=== PATIENT | female | born 1950 | race American Indian/Alaskan Native ===

== ENCOUNTER 2020-04-07 20:16 | Inpatient (IN) | payer MEDICARE ==
[~2020-04-07] VITALS: Ht 170.2 cm; Wt 94.7 kg
[2020-04-07 20:53] LABS: BASO % 0.4 % (0.0-2.0); EOS # 0.1 (0.0-0.7); EOS % 0.7 % (0-4.0); GRAN # 5.1 (1.4-6.5); GRAN % 69.1 % (42.2-75.2); HEMATOCRIT 41.9 % (37.0-47.0); HEMOGLOBIN 13.8 g/dl (12.5-16.0); LYMPH # 1.6 (1.2-3.4); LYMPH % 21.2 % (20.0-51.0); MEAN CELL VOLUME 86 fl (80.0-100.0); MEAN CORPUSCULAR HEMOGLOBIN 29 pg (27.0-31.0); MEAN CORPUSCULAR HGB CONC 33 g/dl (33.0-37.0); MONO # 0.6 (0.1-0.6); MONO % 8.5 % (1.7-9.3); PLATELET COUNT 368 K/mm3 (130-400); RED BLOOD COUNT 4.85 M/mm3 (4.10-5.30)
[2020-04-07] MEDS ORDERED: REPATHA SU140 MG/1 M SQ (21:20)
[2020-04-07] MEDS ORDERED: ASPIRIN 81M81 MG/TA2 PO (21:20)
[2020-04-07 21:21] LABS: ALANINE AMINOTRANSFERASE 23 U/L (4-34); ALBUMIN 4.7 gm/dL (3.5-5.0); ALKALINE PHOSPHATASE 84 U/L (50-136); ANION GAP 10 mmol/L (7-16); AST,SGOT 28 U/L (15-37); BILIRUBIN,TOTAL 0.6 mg/dL (0.0-1.0); BLOOD UREA NITROGEN 11 mg/dL (7-17); CALCIUM 10.2 mg/dL (8.4-10.2); CARBON DIOXIDE 28 mmol/L (22-30); CHLORIDE 99 mmol/L (98-107); CREATINE KINASE 106 U/L (30-135); CREATININE, serum 0.61 (0.52-1.25); GLUCOSE 114 mg/dL (74-106); LIPASE 35 U/L (23-300); POTASSIUM 3.5 mmol/L (3.4-5.0); SODIUM 137 mmol/L (137-145); TOTAL PROTEIN 7.8 gm/dL (6.4-8.2)
[2020-04-07] MEDS ORDERED: MASON NATURAL2000 IU PO (21:21)
[2020-04-07] MEDS ORDERED: VITAMIN B122500 MCG SL (21:21)
[2020-04-07] MEDS ORDERED: HCTZ 25MG TAB25 MG PO (21:22)
[2020-04-07] MEDS ORDERED: NEURONTIN300 MG/CAP PO (21:22)
[2020-04-07] MEDS ORDERED: ZETIA 10MG TAB10 MG PO (21:22)
[2020-04-07] MEDS ORDERED: ULTRAM 50MG TAB50 MG PO (21:23)
[2020-04-07] MEDS ORDERED: NITROSTAT0.4 MG/TAB SL (21:23)
[2020-04-07] MEDS ORDERED: ISORDIL 20MG20 M1 PO (21:24)
[2020-04-07] MEDS ORDERED: WELLBUTRIN XL150 MG PO (21:25)
[2020-04-07 21:26] LABS: INR 1.1 (0.8-3.0); PROTHROMBIN TIME 12.3 SECONDS (9.7-12.8)
[2020-04-07] MEDS ORDERED: COMBIRESP IH (21:26)
[2020-04-07] MEDS ORDERED: DESYREL 50MG50 MG PO (21:26)
[2020-04-07] MEDS ORDERED: ANTIVERT 25MG25 MG PO (21:27)
[2020-04-07] MEDS ORDERED: OPTIVAR 6 ML 6 M6 ML OP (21:28)
[2020-04-07] MEDS ORDERED: ZOFRAN ODT4 MG PO (21:28)
[2020-04-07] MEDS ORDERED: TYLENOL 500MG500 MG PO (21:29)
[2020-04-07 21:43] LABS: TROPONIN-I < 0.012 ng/mL (0.000-0.035)
--- NOTE | 2020-04-07 23:20 | NUR ---
PT ADMITTED TO ROOM 330 FROM ER. REPORT RECEIVED FROM JAREN DIAZ. SHERRY CALIXTO HERE. POSSIBLY MOVING HER TO ICU FOR NITRO DRIP. PT HAVING LT LATERAL CHEST UNDER BREAST. PT VERY NONSPECIFIC WITH HISTORY. NS STARTED TO LT INT NEEDLE TO LT F/A AT 75CC/HR. PT HAS ANXIOUS AFFECT. LAB HERE AT 2358 FOR SECOND TROPONIN. NOTIFIED RT FOR STAT EKG.
[2020-04-07 23:25] VITALS: BP 133/74; PULSE 90; TEMP 97.9
[2020-04-07 23:35] VITALS: BP 139/76; PULSE 86; TEMP 97.8
[2020-04-08] VITALS (759 sets, daily range): BP systolic 108–159; BP diastolic 70–93; PULSE 72–88; TEMP 97.9–98.5; O2SAT 50–100
[2020-04-08] MEDS ORDERED: LEXAPRO 10MG10 MG PO (00:04)
[2020-04-08] MEDS ORDERED: [UNRECOGNIZED DRUG - OTHER] PO (00:16)
[2020-04-08] MEDS ORDERED: ashwagandha PO (00:18)
[2020-04-08] MEDS ORDERED: SPIRULINA PO (00:19)
--- NOTE | 2020-04-08 00:24 | NUR ---
GAVE ONE DOSE OF DILAUDID IV PER ORDER FOR LT CHEST. HAS HX DEGENERATIVE DISC DISEASE. WEAR BRACE TO LT KNEE PRN. USE CANE AT HOME. ALSO HAS SEVERE NEUROPATHY.
--- NOTE | 2020-04-08 00:54 | NUR ---
CALLED ICU TRANSFER REPORT TO GUDELIA DIAZ. KARLY DIAZ WILL STAY WITH HER DURING CT CHEST THEN TRANSFER STRAIGHT TO ICU.
--- NOTE | 2020-04-08 01:39 | NUR ---
Arrived to the unit via wheelchair. Patient alert and oriented. Patient is in not in distress but will occasionally grab at her left side in pain. Reports pain is like being "poked with a stick" under the left breast. States that there is always mild pain but the intensity comes and goes suddenly. Does not appear to be worsened with movement or coughing. Administering nitro IV per orders and morphine PRN. Also provided a warm pack for comfort. Call light left within reach; will continue to monitor.
--- NOTE | 2020-04-08 04:10 | NUR ---
Updated patient's son via telephone. All questions and concerns addressed at this time.
[2020-04-08] MEDS ORDERED: ASTELIN NASAL S34 ML NS (05:14)
[2020-04-08] MEDS ORDERED: FIBER GUMMIES2.5 GM (05:15)
[2020-04-08 05:34] LABS: BASO % 0.4 % (0.0-2.0); EOS # 0.1 (0.0-0.7); EOS % 1.1 % (0-4.0); GRAN # 5.5 (1.4-6.5); GRAN % 67.8 % (42.2-75.2); HEMATOCRIT 38.4 % (37.0-47.0); HEMOGLOBIN 12.6 g/dl (12.5-16.0); LYMPH # 1.7 (1.2-3.4); MEAN CELL VOLUME 89 fl (80.0-100.0); MEAN CORPUSCULAR HEMOGLOBIN 29 pg (27.0-31.0); MEAN CORPUSCULAR HGB CONC 33 g/dl (33.0-37.0); MEAN PLATELET VOLUME 8.9 fl (7.4-10.4); MONO # 0.8 (0.1-0.6); MONO % 9.5 % (1.7-9.3); PLATELET COUNT 330 K/mm3 (130-400); RED BLOOD COUNT 4.33 M/mm3 (4.10-5.30); REDCELL DISTRIBUTION WIDTH-CV 14.4 % (11.5-14.5)
[2020-04-08 05:45] LABS: CALCIUM 9.4 mg/dL (8.4-10.2); CHOLESTEROL RISK RATIO 2.4; CREATININE, serum 0.57 (0.52-1.25); POTASSIUM 3.9 mmol/L (3.4-5.0)
--- NOTE | 2020-04-08 09:29 | NUR ---
PT'S MEDICATION BEING HELD AT THIS TIME DUE TO NPO STATUS. PT STATES SHE "HAS TO DRINK A LOT OF WATER WITH HER PILLS." NOTIFIED DR. CHAIREZ OF PT'S STATEMENT. STATES TO ADMIN ASA, BUT ALL OTHER MEDS CAN BE HELD AT THIS TIME.
--- NOTE | 2020-04-08 09:33 | NUR ---
MARKOS met with the patient to discuss discharge plan. The patient lives in [place] with her son, Asha Mcdonald (ph#[phone]). She reports independence with ADLs and has a cane and walking stick. The patient's PCP is Dr. Maryellen Bailey and she receives her medications from [facility]. She reports no difficulties obtaining her meds. The patient does not have a DPOA-HC and she was not interested in completing one at this time. The patient states that she has been seperated from her for three years now, but that they are not legally . She has three children: Asha Mcdonald, Jarvis Mcdonald, and Rome Mcdonald. SW informed the patient that her legal next of kin is her , since they are not yet. The patient verbalized understanding. SW encouraged the patient to think about and to complete a DPOA-HC. The patient was just interested in obtaining a form at this time. MARKOS provided. The patient plans to return home with her son upon discharge. MARKOS attempted to contact the patient's son, Asha. SW left him a voicemail.
--- NOTE | 2020-04-08 09:54 | NUR ---
Dr. Ruvalcaba at bedside speaking with pt.
--- NOTE | 2020-04-08 12:06 | NUR ---
CONTACTED DR. OCHOA, STATES DR. DONIS WILL BE SEEING PT. NOTIFIED DR. DONIS. STATES HE WILL VISIT PT TODAY.
--- NOTE | 2020-04-08 13:50 | NUR ---
Pt's nitro gtt stopped at this time per Dr. Ellis request. will continue to monitor pt's pain level and VS.
--- NOTE | 2020-04-08 15:54 | NUR ---
Dr. Fatima at bedside speaking with pt.
[2020-04-09] VITALS (196 sets, daily range): BP systolic 101–163; BP diastolic 52–95; PULSE 67–116; TEMP 97.7–98.1; O2SAT 78–100
--- NOTE | 2020-04-09 06:49 | NUR ---
Around 5AM patient started complaining of nerve spasms and back pain so I called Kathrin CALIXTO and she stated I can give the patient her Gabapentin early, as the patient requested. I called Report to Chichi DIAZ in the 3rd floor and transfered wheelchaired the patient upstairs.
--- NOTE | 2020-04-09 07:03 | NUR ---
Patient transferred to room 356 via wheelchair from ICU around 06:40 am. Patient reports her chest pain is feeling better at this time. Call light within reach. Gave report to EMILY Moralez.
--- NOTE | 2020-04-09 07:20 | NUR ---
Assessment complete. Pt sitting up in bed, A&O x 4, reports intermittent sharp pain to side 7 out of 10, recently took medication. Slight edema to bilat lower ext. IVF's infusing per orders through right forearm site without s/s of complications. POC reviewed with pt. No further needs reported. Call light in reach.
--- NOTE | 2020-04-09 08:10 | NUR ---
IVF's stopped and disconnected. Pt to nuc med for testing via WC.
--- NOTE | 2020-04-09 09:09 | NUR ---
Pt back to room from nuc med following first part of testing. IVF's and potassium restarted. No further needs reported. Call light in reach.
[2020-04-09] MEDS ORDERED: CARDIZEM CD 12120 MG PO (14:40)
--- NOTE | 2020-04-09 14:49 | NUR ---
Florist'S Decorator collaborated with EMILY Moralez who advised patient has been independent in her room.
--- NOTE | 2020-04-09 16:26 | NUR ---
Discharge instructions reviewed with pt regarding new medications and follow-up appointments. Pt verbalizes understanding, awaiting son to provide transport home.
--- NOTE | 2020-04-09 16:46 | NUR ---
Pt discharged home, ambulates out of facility accompanied by FUDGER.
--- NOTE | 2020-04-09 19:09 | NUR ---
Patient called in for medication clarification. Patient was discharged today. informed patient on the medication she took today per emar. discussed medication that needs to be taken tonight per discharge instruction/ med reconciliation.
== END 2020-04-09 16:48 | disposition home or self-care (01) | DRG 313 ==
LOC: COL.ER 20:16 → JCC 22:04 → MEDICAL 22:04 → ICU 22:04 → MEDICAL 04-09 07:16
PROVIDERS: Emergency Medicine; Nurse Practitioner Family
DX: R07.9 Chest pain, unspecified (principal); K31.6 Fistula of stomach and duodenum; I10 Essential (primary) hypertension; J44.9 Chronic obstructive pulmonary disease, unspecified; K43.2 Incisional hernia without obstruction or gangrene; I25.10 Atherosclerotic heart disease of native coronary artery without angina pectoris; G62.9 Polyneuropathy, unspecified; I08.1 Rheumatic disorders of both mitral and tricuspid valves; I77.1 Stricture of artery; E87.6 Hypokalemia; F32.9 Major depressive disorder, single episode, unspecified; F41.9 Anxiety disorder, unspecified; E78.5 Hyperlipidemia, unspecified; Z79.82 Long term (current) use of aspirin; Z79.891 Long term (current) use of opiate analgesic; Z88.8 Allergy status to other drugs, medicaments and biological substances; Z98.84 Bariatric surgery status
CPT/HCPCS: OP; 99233-AI; C9113; G0378; J1170; J1650; J2270; J2405; J2785; J3480; J7030; Q9967

== ENCOUNTER 2020-08-08 14:54 | Emergency (ER) | payer MEDICARE ==
[~2020-08-08] VITALS: Ht 167.6 cm; Wt 94.1 kg
[~2020-08-08 14:54] MED LIST: ANTIVERT 25MG25 MG PO; ASPIRIN 81M81 MG/TA2 PO; ASTELIN NASAL S34 ML NS; CARDIZEM CD 12120 MG PO; COMBIRESP IH; DESYREL 50MG50 MG PO; FIBER GUMMIES2.5 GM; HCTZ 25MG TAB25 MG PO; ISORDIL 20MG20 M1 PO; LEXAPRO 10MG10 MG PO; MASON NATURAL2000 IU PO; NEURONTIN300 MG/CAP PO; NITROSTAT0.4 MG/TAB SL; OPTIVAR 6 ML 6 M6 ML OP; REPATHA SU140 MG/1 M SQ; SPIRULINA PO; TYLENOL 500MG500 MG PO; ULTRAM 50MG TAB50 MG PO; VITAMIN B122500 MCG SL; WELLBUTRIN XL150 MG PO; ZETIA 10MG TAB10 MG PO; ZOFRAN ODT4 MG PO; [UNRECOGNIZED DRUG - OTHER] PO; ashwagandha PO
[2020-08-08 15:43] LABS: BASO % 0.5 % (0.0-2.0); EOS % 0.6 % (0-4.0); GRAN # 4.8 (1.4-6.5); GRAN % 76.3 % (42.2-75.2); HEMATOCRIT 40.9 % (37.0-47.0); HEMOGLOBIN 13.6 g/dl (12.5-16.0); LYMPH % 15.7 % (20.0-51.0); MEAN CELL VOLUME 86 fl (80.0-100.0); MEAN CORPUSCULAR HEMOGLOBIN 29 pg (27.0-31.0); MEAN CORPUSCULAR HGB CONC 33 g/dl (33.0-37.0); MEAN PLATELET VOLUME 8.8 fl (7.4-10.4); MONO # 0.4 (0.1-0.6); MONO % 6.6 % (1.7-9.3); PLATELET COUNT 325 K/mm3 (130-400); RED BLOOD COUNT 4.76 M/mm3 (4.10-5.30); REDCELL DISTRIBUTION WIDTH-CV 13.6 % (11.5-14.5)
[2020-08-08 16:09] LABS: ALANINE AMINOTRANSFERASE 17 U/L (4-34); ALBUMIN 4.4 gm/dL (3.5-5.0); ALKALINE PHOSPHATASE 74 U/L (50-136); ANION GAP 6 mmol/L (7-16); AST,SGOT 28 U/L (15-37); BILIRUBIN,TOTAL 0.6 mg/dL (0.0-1.0); BLOOD UREA NITROGEN 10 mg/dL (7-17); CALCIUM 9.7 mg/dL (8.4-10.2); CARBON DIOXIDE 28 mmol/L (22-30); CHLORIDE 105 mmol/L (98-107); CREATININE, serum 0.49 (0.52-1.25); GLUCOSE 106 mg/dL (74-106); LIPASE 23 U/L (23-300); POTASSIUM 3.5 mmol/L (3.4-5.0); SODIUM 138 mmol/L (137-145); TOTAL PROTEIN 7.6 gm/dL (6.4-8.2)
[2020-08-08 16:17] LABS: C-REACTIVE PROTEIN < 0.5 mg/dL (0.0-0.9)
[2020-08-08 17:11] LABS: COLLECTION METHOD CLEAN CATCH
[2020-08-08 17:27] LABS: MUCOUS Present /lpf; PH 6 (5-8); SQUAMOUS EPITHELIAL 0-2 /hpf; URINE APPEARANCE Hazy; URINE BACTERIA None Seen /hpf; URINE BILIRUBIN Negative (NEGATIVE); URINE BLOOD Negative (NEGATIVE); URINE COLOR Yellow; URINE GLUCOSE Negative (NEGATIVE); URINE KETONE 1+ (NEGATIVE); URINE LEUKOCYTE ESTERASE Negative (NEGATIVE); URINE NITRATE Negative (NEGATIVE); URINE PROTEIN(semi-quant) 1+ (NEGATIVE); URINE UROBILINOGEN Negative (NEGATIVE)
[2020-08-08] MEDS ORDERED: PROTONIX 40MG T40 MG PO (17:43)
[2020-08-08] MEDS ORDERED: ZOFRAN ODT4 MG PO (17:43)
[2020-08-08 18:15] VITALS: BP 158/93; PULSE 79; TEMP 98.1
[2020-08-09] MEDS ORDERED: NEURONTIN300 MG/CAP PO (03:42)
[2020-08-09] MEDS ORDERED: INULIN PO (03:45)
[2020-08-09] MEDS ORDERED: IMDUR 30MG30 MG/TAB PO (03:51)
[2020-08-09] MEDS ORDERED: HCTZ12.5TAB PO (03:52)
[2020-08-09] MEDS ORDERED: COZAAR 50MG50 MG/TAB PO (03:53)
== END 2020-08-08 17:54 | disposition home or self-care (01) ==
LOC: COL.ER 14:54
PROVIDERS: Nurse Practitioner Primary Care
DX: R10.13 Epigastric pain (principal); R11.2 Nausea with vomiting, unspecified; I25.10 Atherosclerotic heart disease of native coronary artery without angina pectoris; I10 Essential (primary) hypertension; E78.5 Hyperlipidemia, unspecified; F41.9 Anxiety disorder, unspecified; Z88.8 Allergy status to other drugs, medicaments and biological substances; Z79.82 Long term (current) use of aspirin; Z79.899 Other long term (current) drug therapy
CPT/HCPCS: J2405; J7030

== ENCOUNTER 2020-08-08 21:40 | Observation (INO) | payer MEDICARE ==
[~2020-08-08] VITALS: Ht 167.6 cm; Wt 91.9 kg
[~2020-08-08 21:40] MED LIST changes: +PROTONIX 40MG T40 MG PO
[2020-08-08 23:36] LABS: BASO % 0.5 % (0.0-2.0); EOS % 0.7 % (0-4.0); GRAN % 68.1 % (42.2-75.2); HEMATOCRIT 41.9 % (37.0-47.0); LYMPH # 1.3 (1.2-3.4); LYMPH % 21.6 % (20.0-51.0); MEAN CELL VOLUME 86 fl (80.0-100.0); MEAN CORPUSCULAR HEMOGLOBIN 29 pg (27.0-31.0); MEAN CORPUSCULAR HGB CONC 33 g/dl (33.0-37.0); MONO # 0.5 (0.1-0.6); MONO % 8.9 % (1.7-9.3); PLATELET COUNT 341 K/mm3 (130-400); RED BLOOD COUNT 4.88 M/mm3 (4.10-5.30); REDCELL DISTRIBUTION WIDTH-CV 13.8 % (11.5-14.5)
[2020-08-08 23:47] LABS: ALANINE AMINOTRANSFERASE 18 U/L (4-34); ALBUMIN 4.6 gm/dL (3.5-5.0); ALKALINE PHOSPHATASE 80 U/L (50-136); ANION GAP 9 mmol/L (7-16); AST,SGOT 26 U/L (15-37); BILIRUBIN,TOTAL 0.5 mg/dL (0.0-1.0); BLOOD UREA NITROGEN 8 mg/dL (7-17); CALCIUM 9.6 mg/dL (8.4-10.2); CARBON DIOXIDE 23 mmol/L (22-30); CHLORIDE 107 mmol/L (98-107); CREATININE, serum 0.48 (0.52-1.25); GLUCOSE 94 mg/dL (74-106); LIPASE 27 U/L (23-300); POTASSIUM 3.5 mmol/L (3.4-5.0); SODIUM 139 mmol/L (137-145); TOTAL PROTEIN 8.1 gm/dL (6.4-8.2)
[2020-08-09 00:10] LABS: TROPONIN-I < 0.012 ng/mL (0.000-0.035)
[2020-08-09 03:16] VITALS: BP 154/79; PULSE 81; TEMP 97.6
[2020-08-09 03:19] VITALS: BP 154/79; PULSE 79; TEMP 97.6
[2020-08-09] MEDS ORDERED: NEURONTIN300 MG/CAP PO (03:42)
[2020-08-09] MEDS ORDERED: INULIN PO (03:45)
[2020-08-09] MEDS ORDERED: IMDUR 30MG30 MG/TAB PO (03:51)
[2020-08-09] MEDS ORDERED: HCTZ12.5TAB PO (03:52)
[2020-08-09] MEDS ORDERED: COZAAR 50MG50 MG/TAB PO (03:53)
--- NOTE | 2020-08-09 04:30 | NUR ---
Patient is feeling a little better after getting reglan IV. She continues to have nausea but no vomiting. Toradol given for pain. Went through her allergies and home medications with her. Admission assessments compledted. Oriented patient to room. Discussed the plan for today. She is NPO. She refused getting the NG tube placed. SHe is able to get up and walk on her own without assist. Her family are aware of her admission. No other changes at this time. Call light within reach.
[2020-08-09 08:00] VITALS: BP 124/69; PULSE 75; TEMP 98.6
--- NOTE | 2020-08-09 09:57 | NUR ---
Assessment completed, alert/oriented, vital signs stable, reports feeling much better today, Sx consult made and not sx intervention indicated at this time / adancing diet to CL and wait and watch, abd is soft and not as tender, BS+ she deneis passing any flatus, IVF continued, denied needs, will continue to monitor
--- NOTE | 2020-08-09 11:43 | NUR ---
First visit from the boiler repair supervisor. prayed with patient. No other needs right now.
[2020-08-09 12:55] VITALS: BP 126/79; PULSE 77; TEMP 98.9
--- NOTE | 2020-08-09 15:15 | NUR ---
MARKOS met with the patient and her son, Asha Mcdonald (ph#[phone]), to discuss discharge plan. The patient lives in [place] with Asha and Asha's . She reports independence with ADLs and has a cane. The patient's PCP is Dr. Maryellen Bailey and she receives her medications from [facility]. She reports no difficulties obtaining her meds. The patient does not have a DPOA-HC completed, but she was interested in obtaining a form. MARKOS provided. The patient states that she is still legally , but that her and her are . She states that she has three sons. MARKOS informed her that her legal next of kin is still her and encouraged her to complete the DPOA-HC. The patient verbalized understanding. She would like to think about which son to designate. She states she will then let staff know when she is ready to sign it or if she has decided to complete it while here. The patient plans to return home with her son upon discharge. No additional needs at this time. *Discharge plan: home with son*
[2020-08-09 15:26] VITALS: BP 155/86; PULSE 81; TEMP 98.7
[2020-08-09 20:04] VITALS: BP 151/71; PULSE 83; TEMP 98.5
[2020-08-10 04:00] VITALS: BP 136/74; PULSE 68; TEMP 98.3
--- NOTE | 2020-08-10 05:06 | NUR ---
Patient has been sleeping most the night. She showered at shift change and stated feeling very tired afterwards. Denies nausea and pain. Discussed plans for today, she is hoping to go home. She is tolerating clear liquids without isssues. No other changes at this time. Call light within reach.
[2020-08-10 07:52] VITALS: BP 129/67; PULSE 61; TEMP 98.1
[2020-08-10 08:32] LABS: BASO % 0.5 % (0.0-2.0); EOS # 0.1 (0.0-0.7); EOS % 1.5 % (0-4.0); GRAN # 3.6 (1.4-6.5); GRAN % 61.8 % (42.2-75.2); HEMATOCRIT 37.7 % (37.0-47.0); HEMOGLOBIN 12.7 g/dl (12.5-16.0); LYMPH # 1.5 (1.2-3.4); LYMPH % 25.3 % (20.0-51.0); MEAN CELL VOLUME 87 fl (80.0-100.0); MEAN CORPUSCULAR HEMOGLOBIN 29 pg (27.0-31.0); MEAN CORPUSCULAR HGB CONC 34 g/dl (33.0-37.0); MONO # 0.6 (0.1-0.6); MONO % 10.7 % (1.7-9.3); PLATELET COUNT 304 K/mm3 (130-400); RED BLOOD COUNT 4.36 M/mm3 (4.10-5.30); REDCELL DISTRIBUTION WIDTH-CV 13.9 % (11.5-14.5)
[2020-08-10 08:40] LABS: CALCIUM 9.4 mg/dL (8.4-10.2); CREATININE, serum 0.51 (0.52-1.25); POTASSIUM 3.7 mmol/L (3.4-5.0)
--- NOTE | 2020-08-10 10:56 | NUR ---
Patient had an episode of coughing following drinking some coffee this morning. RT was called and she received a breathing treatment. Patient's diet was changed to Low Fiber. Patient tried to drink some broth this morning, but it caused her throat to hurt her. This nurse assessed patient's throat and it was very red and irritated. Patient repoted that she had been throwing up for approx. 3 days prior to hospitilization. PA was contacted and patient will be seen by provider later this morning. Will continue to monitor.
[2020-08-10 12:40] VITALS: BP 138/78; PULSE 73; TEMP 98.1
--- NOTE | 2020-08-10 15:58 | NUR ---
PATIENT HEALTH SUMMARY, DISCHARGE SUMMARY, AND HOME MEDS PRINTED AND REVIEWED WITH PATIENT. STRESSED IMPORTANCE OF FOLLOW UP APPOINTMENT. BELONGINGS GATHERED BY [employer] INCLUDING GLASSES, PHONE BREAKFAST COOK, BLACK PURSE AND OTHER MISC. PERSONAL ITEMS. PATIENT AMBULATED WITH CANE TO HER CAR WITH [employer] OF [employer]/EMILY AND SEATBELTED FOR RIDE HOME WITH HER SON. PATIENT EDUCATED ON THE NEED TO CALL GI IF SHE HAS ANY CONCERNS. HER INT WAS REMOVED, WAS INTACT AND SECURED WITH GAUZE AND PAPER TAPE. PATIENT EDUCATED ON NEED TO USE WARM SALT WATER RINSES TO HELP WITH HER THROAT PAIN. SHE VOICED UNDERSTANDING.
== END 2020-08-10 16:00 | disposition home or self-care (01) ==
LOC: COL.ER 21:40 → SURG 08-09 01:32
PROVIDERS: Emergency Medicine; Physician Assistant; ADMIT Hospitalist
DX: K31.89 Other diseases of stomach and duodenum (principal); R11.2 Nausea with vomiting, unspecified; I25.10 Atherosclerotic heart disease of native coronary artery without angina pectoris; I10 Essential (primary) hypertension; E78.5 Hyperlipidemia, unspecified; J44.9 Chronic obstructive pulmonary disease, unspecified; G62.9 Polyneuropathy, unspecified; J34.2 Deviated nasal septum; R09.81 Nasal congestion; F32.9 Major depressive disorder, single episode, unspecified; F41.9 Anxiety disorder, unspecified; Z87.19 Personal history of other diseases of the digestive system; Z79.82 Long term (current) use of aspirin; Z79.899 Other long term (current) drug therapy; Z79.891 Long term (current) use of opiate analgesic; Z90.49 Acquired absence of other specified parts of digestive tract
CPT/HCPCS: 99239; C9113; G0378; J1885; J2405; J2765; J7030; J7120; Q9967

== ENCOUNTER 2020-08-20 09:17 | Day surgery (SDC) | payer MEDICARE ==
[~2020-08-20] VITALS: Ht 167.6 cm; Wt 93.0 kg
[~2020-08-20 09:17] MED LIST changes: +COZAAR 50MG50 MG/TAB PO; +HCTZ12.5TAB PO; +IMDUR 30MG30 MG/TAB PO; +INULIN PO
[2020-08-20 10:00] VITALS: BP 123/81; PULSE 81; TEMP 97.8
[2020-08-20] MEDS ORDERED: COMBIRESP IH (10:20)
[2020-08-20] MEDS ORDERED: CARDIZEM120 MG PO (10:21)
[2020-08-20] MEDS ORDERED: VOLTAREN GEL 1%1 TU TP (10:22)
[2020-08-20] MEDS ORDERED: LEXAPRO 10MG10 MG PO (10:26)
[2020-08-20] MEDS ORDERED: PROTONIX 40MG T40 MG PO (10:29)
[2020-08-20] MEDS ORDERED: REPATHA SU140 MG/1 M SQ (10:30)
[2020-08-20] MEDS ORDERED: TRIAMCINOLONE A15 GM TP (10:32)
[2020-08-20] MEDS ORDERED: FIBER GUMMIES2.5 GM (10:34)
[2020-08-20] MEDS ORDERED: CALCIUM CARBON650 M2 PO (10:37)
[2020-08-20 11:50] VITALS: BP 101/61; PULSE 81; TEMP 96.9
[2020-08-20 12:05] VITALS: BP 109/64; PULSE 74
--- NOTE | 2020-08-20 12:05 | NUR ---
Pt continues to rest. Tolerating food and fluids without difficulties. Call light within reach.
[2020-08-20 12:20] VITALS: BP 116/69; PULSE 67
--- NOTE | 2020-08-20 12:20 | NUR ---
IV site discontinued with all parts intact. Discharge instructions reviewed. Pt voices understanding. Pt up to dress. Call light within reach.
--- NOTE | 2020-08-20 12:35 | NUR ---
Pt escorted to private car via wheel chair. Pt accompanied home by her son.
[2020-08-20 13:45] VITALS: BP 101/61; PULSE 79
== END 2020-08-20 12:35 | disposition home or self-care (01) ==
LOC: SDCO 09:17
DX: Z12.11 Encounter for screening for malignant neoplasm of colon (principal); K57.30 Diverticulosis of large intestine without perforation or abscess without bleeding; R10.84 Generalized abdominal pain; R11.0 Nausea; K31.84 Gastroparesis; M85.80 Other specified disorders of bone density and structure, unspecified site; Z98.84 Bariatric surgery status; I25.10 Atherosclerotic heart disease of native coronary artery without angina pectoris; I10 Essential (primary) hypertension; J44.9 Chronic obstructive pulmonary disease, unspecified; K21.9 Gastro-esophageal reflux disease without esophagitis; F32.9 Major depressive disorder, single episode, unspecified; F41.9 Anxiety disorder, unspecified; M06.9 Rheumatoid arthritis, unspecified; M51.35 Other intervertebral disc degeneration, thoracolumbar region; M19.90 Unspecified osteoarthritis, unspecified site; D51.0 Vitamin B12 deficiency anemia due to intrinsic factor deficiency; G62.9 Polyneuropathy, unspecified; E78.2 Mixed hyperlipidemia; Z98.62 Peripheral vascular angioplasty status; Z79.899 Other long term (current) drug therapy; Z79.82 Long term (current) use of aspirin; Z79.1 Long term (current) use of non-steroidal anti-inflammatories (NSAID); Z87.891 Personal history of nicotine dependence
CPT/HCPCS: 43235; G0121; J0330; J2704; J7120

== ENCOUNTER → 2020-09-20 | Outpatient (CLI) | payer MEDICARE ==
[~2020-09-20] MED LIST changes: +CALCIUM CARBON650 M2 PO; +CARDIZEM120 MG PO; +TRIAMCINOLONE A15 GM TP; +VOLTAREN GEL 1%1 TU TP
== END ==
LOC: COL.RAD 12:54
DX: M48.02 Spinal stenosis, cervical region (principal); M47.812 Spondylosis without myelopathy or radiculopathy, cervical region; M43.22 Fusion of spine, cervical region
CPT/HCPCS: A9585

== ENCOUNTER → 2021-07-07 | Outpatient (CLI) | payer MEDICARE | LOC: COL.RAD 12:48 | DX: M47.22 Other spondylosis with radiculopathy, cervical region (principal); M48.02 Spinal stenosis, cervical region | CPT/HCPCS: A9575 ==

== ENCOUNTER → 2021-08-10 | Outpatient (CLI) | payer MEDICARE | LOC: MHCPAIN 12:40 | DX: M54.2 Cervicalgia (principal); M25.512 Pain in left shoulder; M47.812 Spondylosis without myelopathy or radiculopathy, cervical region; G89.29 Other chronic pain | CPT/HCPCS: G0463 ==

== ENCOUNTER → 2021-10-14 | Outpatient (CLI) | payer MEDICARE | LOC: COL.RAD 12:15 | DX: M19.012 Primary osteoarthritis, left shoulder (principal) | CPT/HCPCS: J3301; Q9967 ==